=== PATIENT | female | born 1990 | race Caucasian/White ===

== ENCOUNTER 2016-11-15 11:14 | Inpatient (IN) | payer MEDICAID ==
[~2016-11-15] VITALS: Ht 165.1 cm; Wt 83.3 kg
[2016-11-15] MEDS ORDERED: OPTIRAY 350 100 ML VIAL HMH IV ONE (11:15)
[2016-11-15] MEDS ORDERED: KETOROLAC 30 MG/ML VIAL ONE (12:13)
[2016-11-15] MEDS ORDERED: SODIUM CHLORIDE 0.9% 1,000 ML ONE (15:27)
[2016-11-15] MEDS ORDERED: DILAUDID 1 MG/ML AMP ONE (15:27)
[2016-11-15] MEDS ORDERED: ED METRONIDAZOLE IV 100 ML IV ONE (15:47)
[2016-11-15] MEDS ORDERED: ACETAMINOPHEN 325 MG TAB ONE (16:40)
[2016-11-15 17:24] VITALS: BP_SYST 110; RESP 16; TEMP 99.3
[2016-11-15] MEDS: ONDANSETRON 4 MG VIAL IV PUSH PRN (17:25)
[2016-11-15] MEDS: MORPHINE 2 MG/ML SYR IV PRN ×3 (17:26→21:36)
[2016-11-15 17:27] VITALS: BMI 32.5
[2016-11-15] MEDS: KCL IV SCH (17:38)
[2016-11-15] MEDS: D5 NS IV SCH (17:38)
[2016-11-15] MEDS ORDERED: MISSING DOSE XX ONE (17:55)
[2016-11-15] MEDS: LEVOFLOXACIN 500 MG/100 ML 100 ML IV SCH (18:19)
[2016-11-15] MEDS: KETOROLAC 15 MG/ML VIAL IV PRN (18:21)
[2016-11-15 18:23] VITALS: Ht 165.1 cm; Wt 83.3 kg
[2016-11-15 19:15] VITALS: BP_SYST 105; RESP 16; TEMP 98.6
[2016-11-15] MEDS: NEB-XOPENEX 0.63 MG/3 ML INH SCH ×2 (20:09→23:12)
[2016-11-15] MEDS: PANTOPRAZOLE 40 MG VIAL IV SCH (21:34)
[2016-11-15] MEDS ORDERED: MORPHINE 2 MG/ML SYR IV ONE (21:50)
[2016-11-15 23:22] VITALS: BP_SYST 105; RESP 16; TEMP 97.6
[2016-11-15 23:23] VITALS: RESP 16
[2016-11-16] MEDS: METRONIDAZOLE 500MG/100ML 100 ML IV SCH ×4 (00:12→23:18)
[2016-11-16] MEDS: MORPHINE 2 MG/ML SYR IV PRN ×8 (00:12→23:18)
[2016-11-16] MEDS: KETOROLAC 15 MG/ML VIAL IV PRN ×4 (00:18→19:09)
[2016-11-16] MEDS: D5 NS IV SCH ×2 (03:33→14:27)
[2016-11-16] MEDS: KCL IV SCH ×2 (03:33→14:27)
[2016-11-16 04:08] VITALS: BP_SYST 120; RESP 20; TEMP 98.8
[2016-11-16 07:30] VITALS: BP_SYST 112; RESP 18; TEMP 99.3
[2016-11-16] MEDS: NEB-XOPENEX 0.63 MG/3 ML INH SCH ×4 (07:35→23:01)
[2016-11-16] MEDS: PANTOPRAZOLE 40 MG VIAL IV SCH ×2 (08:23→19:58)
[2016-11-16] MEDS: LEVOFLOXACIN 500 MG/100 ML 100 ML IV SCH (09:32)
[2016-11-16 10:57] VITALS: BP_SYST 108; RESP 18; TEMP 98.2
[2016-11-16] MEDS ORDERED: MISSING DOSE XX ONE ×2 (12:55→19:05)
[2016-11-16 15:28] VITALS: BP_SYST 115; RESP 18; TEMP 98.6
[2016-11-16] MEDS: ONDANSETRON 4 MG VIAL IV PUSH PRN (16:38)
[2016-11-16] MEDS: FONDAPARINUX 2.5 MG SYR SUBQ SCH (20:00)
[2016-11-16 20:27] VITALS: BP_SYST 134; RESP 16; TEMP 98.5
[2016-11-16 23:24] VITALS: BP_SYST 130; RESP 18; TEMP 99.9
[2016-11-17 01:15] VITALS: TEMP 101.2
[2016-11-17] MEDS: KETOROLAC 15 MG/ML VIAL IV PRN ×4 (01:20→19:16)
[2016-11-17] MEDS: MORPHINE 2 MG/ML SYR IV PRN ×6 (01:21→23:21)
[2016-11-17] MEDS: D5 NS IV SCH ×2 (01:24→12:55)
[2016-11-17] MEDS: KCL IV SCH ×2 (01:24→12:55)
[2016-11-17 03:58] VITALS: BP_SYST 95; RESP 20; TEMP 98.8
[2016-11-17] MEDS: NEB-XOPENEX 0.63 MG/3 ML INH SCH ×4 (06:46→22:31)
[2016-11-17 07:21] VITALS: BP_SYST 105; RESP 16; TEMP 99.6
[2016-11-17] MEDS: METRONIDAZOLE 500MG/100ML 100 ML IV SCH ×3 (08:17→23:21)
[2016-11-17] MEDS: PANTOPRAZOLE 40 MG VIAL IV SCH ×2 (08:17→19:59)
[2016-11-17] MEDS: LEVOFLOXACIN 500 MG/100 ML 100 ML IV SCH (09:22)
[2016-11-17] MEDS: FONDAPARINUX 2.5 MG SYR SUBQ SCH (09:22)
[2016-11-17 11:21] VITALS: BP_SYST 117; RESP 16; TEMP 98.4
[2016-11-17] MEDS ORDERED: BISMUTH SUBSAL BTL PO PRN (14:10)
[2016-11-17] MEDS: SACCHA BOULARDII 250MG CAP PO SCH ×2 (16:59→20:00)
[2016-11-17 19:44] VITALS: BP_SYST 123; RESP 18; TEMP 98.2
[2016-11-17 22:58] VITALS: BP_SYST 111; RESP 16; TEMP 98.5
[2016-11-18] MEDS: KETOROLAC 15 MG/ML VIAL IV PRN ×3 (00:55→13:35)
[2016-11-18] MEDS: MORPHINE 2 MG/ML SYR IV PRN ×4 (00:55→19:46)
[2016-11-18] MEDS: KCL IV SCH ×2 (00:56→20:24)
[2016-11-18] MEDS: D5 NS IV SCH ×2 (00:56→20:24)
[2016-11-18 03:27] VITALS: BP_SYST 108; RESP 18; TEMP 98.8
[2016-11-18] MEDS: NEB-XOPENEX 0.63 MG/3 ML INH SCH ×4 (06:07→22:28)
[2016-11-18] MEDS: METRONIDAZOLE 500MG/100ML 100 ML IV SCH ×3 (07:55→23:04)
[2016-11-18] MEDS: LEVOFLOXACIN 500 MG/100 ML 100 ML IV SCH (07:55)
[2016-11-18] MEDS: PANTOPRAZOLE 40 MG VIAL IV SCH ×2 (07:55→20:14)
[2016-11-18] MEDS: SACCHA BOULARDII 250MG CAP PO SCH ×2 (07:55→20:15)
[2016-11-18] MEDS: FONDAPARINUX 2.5 MG SYR SUBQ SCH (07:56)
[2016-11-18 08:00] VITALS: BP_SYST 117; RESP 18; TEMP 98.3
[2016-11-18 12:24] VITALS: BP_SYST 112; RESP 18; TEMP 98
[2016-11-18] MEDS ORDERED: MISSING DOSE XX ONE ×2 (13:20→20:05)
[2016-11-18 15:42] VITALS: BP_SYST 102; RESP 18; TEMP 98.3
[2016-11-18 20:17] VITALS: BP_SYST 130; RESP 16; TEMP 98.7
[2016-11-18] MEDS: DILAUDID 1 MG/ML AMP IV PRN (23:01)
[2016-11-18] MEDS: ACETAMINOPHEN 325 MG TAB PO PRN (23:02)
[2016-11-18] MEDS: ONDANSETRON 4 MG VIAL IV PUSH PRN (23:04)
[2016-11-19] VITALS (7 sets, daily range): BP systolic 108–132; RESP 16–20; TEMP 97.8–99
[2016-11-19] MEDS: DILAUDID 1 MG/ML AMP IV PRN ×7 (02:01→21:49)
[2016-11-19] MEDS: ONDANSETRON 4 MG VIAL IV PUSH PRN ×3 (05:14→21:49)
[2016-11-19] MEDS: D5 NS IV SCH ×2 (07:33→22:18)
[2016-11-19] MEDS: KCL IV SCH ×2 (07:33→22:18)
[2016-11-19] MEDS: NEB-XOPENEX 0.63 MG/3 ML INH SCH ×4 (07:37→23:36)
[2016-11-19] MEDS: SACCHA BOULARDII 250MG CAP PO SCH ×2 (08:49→21:49)
[2016-11-19] MEDS: ACETAMINOPHEN 325 MG TAB PO PRN ×2 (08:49→22:18)
[2016-11-19] MEDS: METRONIDAZOLE 500MG/100ML 100 ML IV SCH ×2 (08:50→15:34)
[2016-11-19] MEDS: FONDAPARINUX 2.5 MG SYR SUBQ SCH (08:50)
[2016-11-19] MEDS: LEVOFLOXACIN 500 MG/100 ML 100 ML IV SCH (11:53)
[2016-11-19] MEDS: LORAZEPAM 0.5 MG TAB PO PRN ×2 (13:21→22:17)
[2016-11-20] MEDS: METRONIDAZOLE 500MG/100ML 100 ML IV SCH ×4 (00:44→23:48)
[2016-11-20] MEDS: DILAUDID 1 MG/ML AMP IV PRN ×7 (00:48→23:52)
[2016-11-20 03:13] VITALS: BP_SYST 118; RESP 16; TEMP 98.3
[2016-11-20] MEDS: NEB-XOPENEX 0.63 MG/3 ML INH SCH ×4 (06:24→23:10)
[2016-11-20] MEDS: ONDANSETRON 4 MG VIAL IV PUSH PRN ×3 (06:35→20:40)
[2016-11-20 07:23] VITALS: BP_SYST 116; RESP 18; TEMP 98.3
[2016-11-20] MEDS: KCL IV SCH ×3 (08:59→22:55)
[2016-11-20] MEDS: D5 NS IV SCH ×3 (08:59→22:55)
[2016-11-20] MEDS: SACCHA BOULARDII 250MG CAP PO SCH ×2 (08:59→21:41)
[2016-11-20] MEDS: FONDAPARINUX 2.5 MG SYR SUBQ SCH (09:00)
[2016-11-20] MEDS: LEVOFLOXACIN 500 MG/100 ML 100 ML IV SCH (09:46)
[2016-11-20 12:11] VITALS: BP_SYST 114; RESP 16; TEMP 98.3
[2016-11-20 15:06] VITALS: BP_SYST 111; RESP 18; TEMP 98.7
[2016-11-20 19:14] VITALS: BP_SYST 128; RESP 16; TEMP 98.3
[2016-11-20 23:21] VITALS: BP_SYST 114; RESP 16; TEMP 97.8
[2016-11-20] MEDS ORDERED: MISSING DOSE XX ONE (23:25)
[2016-11-21] MEDS: LORAZEPAM 0.5 MG TAB PO PRN (01:13)
[2016-11-21] MEDS: ONDANSETRON 4 MG VIAL IV PUSH PRN ×4 (03:24→22:06)
[2016-11-21] MEDS: DILAUDID 1 MG/ML AMP IV PRN ×6 (03:25→22:07)
[2016-11-21 03:26] VITALS: BP_SYST 121; RESP 16; TEMP 98
[2016-11-21] MEDS: NEB-XOPENEX 0.63 MG/3 ML INH SCH ×4 (06:29→23:27)
[2016-11-21 07:43] VITALS: BP_SYST 108; RESP 16; TEMP 98.2
[2016-11-21] MEDS: D5 NS IV SCH (08:20)
[2016-11-21] MEDS: METRONIDAZOLE 500MG/100ML 100 ML IV SCH ×3 (08:20→23:24)
[2016-11-21] MEDS: KCL IV SCH (08:20)
[2016-11-21] MEDS: SACCHA BOULARDII 250MG CAP PO SCH ×2 (09:08→20:48)
[2016-11-21] MEDS: LEVOFLOXACIN 500 MG/100 ML 100 ML IV SCH (09:09)
[2016-11-21] MEDS: FONDAPARINUX 2.5 MG SYR SUBQ SCH (09:09)
[2016-11-21] MEDS: OMNIPAQUE 240 MG/ML, 50 ML PO SCH ×2 (10:14→12:35)
[2016-11-21 11:20] VITALS: BP_SYST 117; RESP 16; TEMP 98.4
[2016-11-21 14:27] VITALS: BP_SYST 110; RESP 18; TEMP 98.2
[2016-11-21] MEDS ORDERED: OPTIRAY 350 100 ML VIAL HMH IV ONE (14:49)
[2016-11-21] MEDS ORDERED: Furosemide 20 MG/2 ML VIAL IV ONE (19:45)
[2016-11-21 20:03] VITALS: BP_SYST 108; RESP 16; TEMP 97.4
[2016-11-21] MEDS: ACETAMINOPHEN 325 MG TAB PO PRN (23:25)
[2016-11-21 23:30] VITALS: BP_SYST 121; RESP 16; TEMP 98.6
[2016-11-22] MEDS: DILAUDID 1 MG/ML AMP IV PRN ×3 (01:07→13:09)
[2016-11-22 03:20] VITALS: BP_SYST 97; RESP 16; TEMP 98.3
[2016-11-22] MEDS: KCL IV SCH (06:06)
[2016-11-22] MEDS: D5 NS IV SCH (06:06)
[2016-11-22] MEDS: NEB-XOPENEX 0.63 MG/3 ML INH SCH ×4 (06:27→23:30)
[2016-11-22 07:32] VITALS: BP_SYST 115; RESP 16; TEMP 97.9
[2016-11-22] MEDS: METRONIDAZOLE 500MG/100ML 100 ML IV SCH ×3 (08:28→23:15)
[2016-11-22] MEDS: LEVOFLOXACIN 500 MG/100 ML 100 ML IV SCH (08:28)
[2016-11-22] MEDS: FONDAPARINUX 2.5 MG SYR SUBQ SCH (08:29)
[2016-11-22] MEDS: SACCHA BOULARDII 250MG CAP PO SCH ×2 (08:29→20:14)
[2016-11-22] MEDS: ONDANSETRON 4 MG VIAL IV PUSH PRN (08:29)
[2016-11-22 09:40] VITALS: BP_SYST 118; RESP 18; TEMP 98.6
[2016-11-22 10:51] VITALS: BP_SYST 112; RESP 15; TEMP 98.2
[2016-11-22] MEDS: ACETAMINOPHEN 325 MG TAB PO PRN (13:10)
[2016-11-22] MEDS: LORAZEPAM 0.5 MG TAB PO PRN ×2 (13:15→20:14)
[2016-11-22 15:04] VITALS: BP_SYST 120; RESP 16; TEMP 99
[2016-11-22 23:30] VITALS: BP_SYST 118; RESP 16; TEMP 98.3
[2016-11-23] MEDS: ONDANSETRON 4 MG VIAL IV PUSH PRN ×2 (00:10→11:27)
[2016-11-23 03:40] VITALS: BP_SYST 130; RESP 18; TEMP 98.6
[2016-11-23] MEDS: KCL IV SCH (04:08)
[2016-11-23] MEDS: D5 NS IV SCH (04:08)
[2016-11-23] MEDS: LORAZEPAM 0.5 MG TAB PO PRN ×2 (04:11→11:25)
[2016-11-23] MEDS: NEB-XOPENEX 0.63 MG/3 ML INH SCH (06:45)
[2016-11-23 08:32] VITALS: BP_SYST 93; RESP 16; TEMP 98.3
[2016-11-23] MEDS: SACCHA BOULARDII 250MG CAP PO SCH (11:24)
[2016-11-23] MEDS: FONDAPARINUX 2.5 MG SYR SUBQ SCH (11:26)
[2016-11-23 11:49] VITALS: BP_SYST 95; RESP 16; TEMP 98.5
[2016-11-23 13:37] VITALS: BP_SYST 95; RESP 16; TEMP 98.5
== END 2016-11-23 14:52 | disposition home or self-care (01) | DRG 392 ==
LOC: ENRESERVDT → ENRESERVTM → ER 11:14 → EMR 16:10 → DELPENDDIS 16:10 → ENPENDDIS 16:10 → 5THE 17:21
PROVIDERS: ADMIT Internal Medicine; ATTEND Internal Medicine
DX: K57.92 Diverticulitis of intestine, part unspecified, without perforation or abscess without bleeding (principal); E66.01 Morbid (severe) obesity due to excess calories; N70.11 Chronic salpingitis; N70.93 Salpingitis and oophoritis, unspecified; Z72.0 Tobacco use; Z87.898 Personal history of other specified conditions; K21.9 Gastro-esophageal reflux disease without esophagitis
CPT/HCPCS: 36415; 74177; 76830; 80053; 80307; 81003; 83690; 84702; 84703; 85025; 87040; 87491; 87493; 87591; 94640; 94799; 96361; 96365; 96367; 96375